=== PATIENT | male | born 1990 | race Caucasian/White ===

== ENCOUNTER 2018-07-25 11:30 | Emergency (ER) | payer OTHER ==
[2018-07-25 11:54] VITALS: BP 125/74
--- NOTE | 2018-07-25 12:06 | UC ---
UC General HPI - HPI Summary HPI Summary: 27-year-old male presents with onset of subjective fever, shaking chills, headache, night sweats, and general malaise last night. Also reports several canker sores to his lower lip. States had some mild ear pain last night as well that is resolved at this time. Denies photophobia, visual disturbances, neck pain, sore throat, cough, chest pain, shortness of breath, abdominal pain, nausea, vomiting, diarrhea, dysuria, frequency, urgency, or hematuria. - History of Current Complaint Chief Complaint: UCGeneralIllness Stated Complaint: FEVER,CANKER SORES Time Seen by Provider: 07/25/18 11:53 Hx Obtained From: Patient Pain Intensity: 7 - Allergy/Home Medications Allergies/Adverse Reactions: Allergies Allergy/AdvReac Type Severity Reaction Status Date / Time amoxicillin Allergy Unknown Verified 07/25/18 11:53 Reaction Details Penicillins Allergy Unknown Verified 07/25/18 11:53 Reaction Details Home Medications: Home Medications Acetaminophen [Tylenol] 2 tab PO ONCE 07/25/18 [History Confirmed 07/25/18] Naproxen Sodium [Aleve] 2 tab PO ONCE 07/25/18 [History Confirmed 07/25/18] PMH/Surg Hx/FS Hx/Imm Hx Previously Healthy: Yes - Denies significant PMH - Surgical History Surgical History: None - Family History Known Family History: Positive: Non-Contributory - Social History Occupation: Employed Full-time Lives: With Family Alcohol Use: Weekly Substance Use Type: None Smoking Status (MU): Never Smoked Tobacco - Immunization History Most Recent Influenza Vaccination: Not the Season Review of Systems All Other Systems Reviewed And Are Negative: Yes Constitutional: Positive: Fever, Chills, Fatigue Skin: Negative: Rash Eyes: Negative: Drainage, Eye Redness ENT: Positive: Ear Ache, Nasal Discharge. Negative: Sore Throat, Sinus Congestion, Sinus Pain/Tenderness Respiratory: Negative: Shortness Of Breath, Cough Cardiovascular: Negative: Palpitations, Chest Pain Gastrointestinal: Negative: Abdominal Pain, Vomiting, Diarrhea, Nausea Genitourinary: Negative: Dysuria, Hematuria, Frequency, Urgency Musculoskeletal: Negative: Arthralgia, Myalgia Neurological: Positive: Headache. Negative: Weakness, Paresthesia, Numbness Is Patient Immunocompromised?: No Physical Exam - Summary Physical Exam Summary: GENERAL APPEARANCE: Well developed, well nourished, alert and cooperative, and appears to be in no acute distress. EYES: Conjunctiva clear. No drainage. EARS: External auditory canals and tympanic membranes clear, hearing grossly intact. NOSE: Mild nasal congestion. No nasal discharge. THROAT: Pharynx normal. No tonsilar inflammation, swelling, exudate, or lesions. Uvula midline. Multiple aphthous ulcers noted to inner lower lip. Teeth and gingiva in good general condition. NECK: Neck supple, non-tender without lymphadenopathy. CARDIAC: Normal S1 and S2. No S3, S4 or murmurs. Rhythm is regular. There is no peripheral edema, cyanosis or pallor. Extremities are warm and well perfused. Capillary refill is less than 2 seconds. Peripheral pulses intact. LUNGS: Clear to auscultation without rales, rhonchi, wheezing or diminished breath sounds. ABDOMEN: Positive bowel sounds. Soft, nondistended, nontender. No guarding or rebound. No masses or hepatosplenomegally. MUSKULOSKELETAL: ROM intact to all extremities. No joint erythema or tenderness. Normal muscular development. Normal gait. SKIN: Skin normal color, texture and turgor with no lesions or eruptions. Triage Information Reviewed: Yes Vital Signs: Initial Vital Signs Temp 100.8 F 07/25/18 11:48 Pulse 110 07/25/18 11:48 Resp 18 07/25/18 11:48 BP 125/74 07/25/18 11:48 Pulse Ox 100 07/25/18 11:48 Vital Signs Reviewed: Yes Course/Dx - Course Course Of Treatment: 27-year-old male presents with onset of subjective fever, shaking chills, headache, night sweats, and general malaise last night. Also reports several canker sores to his lower lip. States had some mild ear pain last night as well that is resolved at this time. Denies photophobia, visual disturbances, neck pain, sore throat, cough, chest pain, shortness of breath, abdominal pain, nausea, vomiting, diarrhea, dysuria, frequency, urgency, or hematuria. Patient had a mildly elevated temperature of 100.8 F at triage. Vital signs were stable. Patient hand mild nasal congestion, and multiple aphthous ulcers to his right lower lip and otherwise unremarkable exam. Discussed with patient that his symptoms are likely from a viral syndrome and I'm recommending symptomatic treatment at this time. He is to follow-up with his primary care provider in 3-5 days if symptoms are not improving. Anticipatory guidance and warning symptoms were reviewed with the patient. Verbalizes understanding and agrees with plan of care. - Differential Dx - Multi-Symptom Differential Diagnoses: Other - URI, tonsilitis, aphthous ulcers, viral syndrome - Diagnoses Provider Diagnosis: Viral syndrome, Aphthous ulcer of mouth Discharge - Sign-Out/Discharge Documenting (check all that apply): Patient Departure All imaging exams completed and their final reports reviewed: No Studies - Discharge Plan Condition: Stable Disposition: HOME Patient Education Materials: Canker Sores (ED), Viral Syndrome (ED) Forms: *Work Release Referrals: Lorin Erickson PA [Primary Care Provider] - 3 Days Additional Instructions: Your history and exam are consistent with a viral infection. Viral infections do not respond to antibiotics and are limited to the treatment of symptoms. Viral infections typically run their course in 7-10 days. You also have several canker sores of the lower lip that do not appear to be infected. Canker sores are often seen in viral infections and will resolve on their own. Drink plenty of fluids to avoid dehydration especially if you are running any fever. Take over the counter acetaminophen (Tylenol) or ibuprofen (Advil, Motrin) according to directions as needed for pain or fever. Use salt water gargles several times a day if you have a sore throat. You may continue to use the over the counter topical canker sore ointment as directed. Follow up with your primary care provider in 3-5 days if symptoms persist. Seek immediate medical attention in the emergency room if you have fever greater than 100.5 F despite taking acetaminophen or ibuprofen, have chest pain , difficulty breathing, or have any worsening of symptoms. - Billing Disposition and Condition Condition: STABLE Disposition: Home
== END 2018-07-25 12:48 | disposition home or self-care (01) ==
LOC: UCCORT 11:30
DX: B34.9 Viral infection, unspecified (principal); K12.0 Recurrent oral aphthae; Z88.0 Allergy status to penicillin
CPT/HCPCS: 99201; G0463

== ENCOUNTER 2018-07-26 12:00 | Emergency (ER) | payer OTHER ==
[2018-07-26 12:10] VITALS: BP 117/63
--- NOTE | 2018-07-26 12:26 | UC ---
Throat Pain/Nasal Lamin HPI - HPI Summary HPI Summary: sores on lips and tongue x 3 days started on his lips , was seen yesterday at [facility] , was diagnosed with canker sores today the sore is spreading to his tongue , very painful , pain is 6 out of 10 , nothing make is better or worse + fever, chills , body aches had cold sores about a week ago - History of Current Complaint Chief Complaint: UCRespiratory Stated Complaint: RE-CK CANKER CORES Time Seen by Provider: 07/26/18 12:06 Hx Obtained From: Patient Onset/Duration: Gradual Onset, Lasting Days - 3, Still Present Severity: Moderate Pain Intensity: 5 Cough: None Associated Signs & Symptoms: Positive: Fever. Negative: Dysphagia, FB Sensation , Drooling, Wheezing, Hoarseness, Sinus Discomfort, Nasal Discharge, Vomiting, Rash - Allergies/Home Medications Allergies/Adverse Reactions: Allergies Allergy/AdvReac Type Severity Reaction Status Date / Time amoxicillin Allergy Unknown Verified 07/26/18 12:06 Reaction Details Penicillins Allergy Unknown Verified 07/26/18 12:06 Reaction Details PMH/Surg Hx/FS Hx/Imm Hx Previously Healthy: Yes - Surgical History Surgical History: None - Family History Known Family History: Positive: Non-Contributory - Social History Alcohol Use: Weekly Substance Use Type: None Smoking Status (MU): Never Smoked Tobacco Type: Cigars - Immunization History Most Recent Influenza Vaccination: Not the Season Review of Systems All Other Systems Reviewed And Are Negative: Yes Constitutional: Positive: Fever, Chills, Fatigue Skin: Positive: Negative Eyes: Positive: Negative ENT: Positive: Negative Respiratory: Positive: Negative Is Patient Immunocompromised?: No Physical Exam Triage Information Reviewed: Yes Appearance: Well-Appearing, No Pain Distress, Well-Nourished Vital Signs: Initial Vital Signs Temp 97.6 F 07/26/18 12:08 Pulse 94 07/26/18 12:08 Resp 16 07/26/18 12:08 BP 117/63 07/26/18 12:08 Pulse Ox 98 07/26/18 12:08 Vital Signs Reviewed: Yes Eye Exam: Normal Eyes: Positive: Conjunctiva Clear ENT: Positive: Normal ENT inspection, Hearing grossly normal, Pharynx normal, Other - multiple sores on his lips and tongue Neck exam: Normal Neck: Positive: Supple, Nontender, No Lymphadenopathy Respiratory: Positive: Chest non-tender, Lungs clear, Normal breath sounds Cardiovascular: Positive: RRR, No Murmur, Pulses Normal Skin Exam: Normal Throat Pain/Nasal Course/Dx - Differential Dx/Diagnosis Provider Diagnosis: Herpes gingivostomatitis Discharge - Sign-Out/Discharge Documenting (check all that apply): Patient Departure All imaging exams completed and their final reports reviewed: No Studies - Discharge Plan Condition: Stable Disposition: HOME Prescriptions: ValACYclovir (*) [Valtrex 500 mg (*)] 500 mg PO BID #14 tab Patient Education Materials: Gingivostomatitis (ED) Referrals: Lorin Erickson PA [Primary Care Provider] - If Needed - Billing Disposition and Condition Condition: STABLE Disposition: Home
== END 2018-07-26 12:23 | disposition home or self-care (01) ==
LOC: UCCORT 12:00
DX: B00.2 Herpesviral gingivostomatitis and pharyngotonsillitis (principal)
CPT/HCPCS: 99212; G0463

== ENCOUNTER 2018-11-26 10:41 | Emergency (ER) | payer OTHER ==
[2018-11-26 11:08] VITALS: BP 144/76
--- NOTE | 2018-11-26 11:29 | UC ---
Skin Complaint HPI - HPI Summary HPI Summary: Patient is a 28yo male presenting with drainage and bleeding from what he thought was a pimple his gluteal cleft that he noticed 2 days ago. Patient notes pain in that area that is worse with lying down or sitting down. Patient denies any tingling. Denies fever, chills, nausea, vomiting. Denies redness or itching in the area. - History of Current Complaint Chief Complaint: UCSkin Stated Complaint: LOW BACK PAIN Hx Obtained From: Patient Timing: Constant Current Severity: Severe Pain Intensity: 8 Pain Scale Used: 0-10 Numeric - Allergy/Home Medications Allergies/Adverse Reactions: Allergies Allergy/AdvReac Type Severity Reaction Status Date / Time amoxicillin Allergy Unknown Verified 11/26/18 11:09 Reaction Details Penicillins Allergy Unknown Verified 11/26/18 11:09 Reaction Details Home Medications: Home Medications Ibuprofen TAB* [Advil TAB*] 400 mg PO ONCE 11/26/18 [History Confirmed 11/26/18] Naproxen Sodium [Aleve] 2 tab PO ONCE 11/26/18 [History Confirmed 11/26/18] PMH/Surg Hx/FS Hx/Imm Hx Previously Healthy: Yes - Surgical History Surgical History: None - Family History Known Family History: Positive: Non-Contributory - Social History Alcohol Use: Occasionally Substance Use Type: None Smoking Status (MU): Never Smoked Tobacco Type: Cigars - Immunization History Most Recent Influenza Vaccination: Not the Season Review of Systems All Other Systems Reviewed And Are Negative: Yes Constitutional: Positive: Negative. Negative: Fever, Chills Skin: Positive: Other - draining wound of the gluteal cleft Respiratory: Positive: Negative Cardiovascular: Positive: Negative Gastrointestinal: Positive: Negative. Negative: Vomiting, Nausea Musculoskeletal: Positive: Negative. Negative: Edema Neurological: Positive: Negative. Negative: Paresthesia, Numbness Physical Exam Triage Information Reviewed: Yes Appearance: Well-Appearing, Well-Nourished, Pain Distress Vital Signs: Initial Vital Signs Temp 98.6 F 11/26/18 11:04 Pulse 103 11/26/18 11:04 Resp 18 11/26/18 11:04 BP 144/76 11/26/18 11:04 Pulse Ox 100 11/26/18 11:04 Vital Signs Reviewed: Yes Eyes: Positive: Conjunctiva Clear ENT: Positive: Hearing grossly normal Neck: Positive: Supple Respiratory: Positive: No respiratory distress Cardiovascular Exam: Normal Cardiovascular: Positive: Tachycardia Neurological: Positive: Alert Psychological: Positive: Age Appropriate Behavior Skin: Positive: Other - pilonidal cyst noted on exam. actively draining blood and purulent discharge. no fluctuance noted. Course/Dx - Course Course Of Treatment: Pilonidal cyst actively draining, so no need for I&D. Drainage was sent for culture. Patient received naproxen here and was given prescription for home. Also given doxycycline prescription for treatment of infection. Instructed to follow up with surgery for further evaluation and treatment of cyst. Instructed to return or go to ED if he experiences fever, chills, n/v. Patient voiced understanding and agreed to the treatment plan. - Diagnoses Provider Diagnosis: Pilonidal cyst with abscess Discharge ED - Sign-Out/Discharge Documenting (check all that apply): Patient Departure All imaging exams completed and their final reports reviewed: No Studies - Discharge Plan Condition: Stable Disposition: HOME Prescriptions: DOXYcycline CAP(*) [DOXYcycline 100MG CAP(*)] 100 mg PO BID #14 cap Naproxen TAB* [Naprosyn 250 mg TAB*] 500 mg PO BID PRN #40 tab PRN Reason: Pain - Moderate Patient Education Materials: Pilonidal Cyst (ED) Referrals: Lorin Erickson PA [Primary Care Provider] - If Needed Jesus Lopez MD [Medical Doctor] - As Soon As Possible Additional Instructions: As discussed, a culture of the drainage was taken today. You're being treated with antibiotics and will be notified if any change needs to be made in your treatment based on the results of the culture. Take the naproxen as prescribed for pain relief. You may also take Tylenol. I strongly advised you to follow-up with the surgery referral given as soon as possible for further evaluation and treatment. Return or go to the emergency room if you experience fever, chills, nausea, vomiting. - Billing Disposition and Condition Condition: STABLE Disposition: Home - Attestation Statements Provider Attestation: I was available for consult. This patient was seen by the JIMMY. The patient was not presented to, seen by, or examined by me. -Cristhian
[2018-11-26] MEDS ORDERED: Naproxen TAB* 250 MG PO ONE (11:41)
--- NOTE | 2018-11-30 07:31 | UC ---
- Progress Note Progress Note: Buttock wound culture and Gram stain come back from November 26, 2018. Patient started on doxycycline. Patient is allergic to amoxicillin and penicillins. The streptococcus intermedius is resistant to tetracycline. There is no specific sensitivity for doxycycline. Also resistant to clindamycin and azithromycin. It is susceptible to third generation cephalosporins. Nursing to call patient and patient is improving continue the doxycycline if the patient is not improving will need to use start a third generation cephalosporin the patient has not had an anaphylactic reaction to amoxicillin or penicillins. Course/Dx - Diagnoses Provider Diagnoses: Pilonidal cyst with abscess Discharge ED - Sign-Out/Discharge Documenting (check all that apply): Patient Departure All imaging exams completed and their final reports reviewed: No Studies - Discharge Plan Condition: Stable Disposition: HOME Prescriptions: DOXYcycline CAP(*) [DOXYcycline 100MG CAP(*)] 100 mg PO BID #14 cap Naproxen TAB* [Naprosyn 250 mg TAB*] 500 mg PO BID PRN #40 tab PRN Reason: Pain - Moderate Patient Education Materials: Pilonidal Cyst (ED) Referrals: Jesus Lopez MD [Medical Doctor] - As Soon As Possible Lorin Erickson PA [Primary Care Provider] - If Needed Additional Instructions: As discussed, a culture of the drainage was taken today. You're being treated with antibiotics and will be notified if any change needs to be made in your treatment based on the results of the culture. Take the naproxen as prescribed for pain relief. You may also take Tylenol. I strongly advised you to follow-up with the surgery referral given as soon as possible for further evaluation and treatment. Return or go to the emergency room if you experience fever, chills, nausea, vomiting. - Billing Disposition and Condition Condition: STABLE Disposition: Home
== END 2018-11-26 12:02 | disposition home or self-care (01) ==
LOC: UCCORT 10:41
DX: L05.01 Pilonidal cyst with abscess (principal); Z88.0 Allergy status to penicillin
CPT/HCPCS: 10080; 87070; 87077; 87186; 87205; 87640; 87641; 99212; A9270-GY; G0463